=== PATIENT | female | born 1975 | race Caucasian/White ===

== ENCOUNTER → 2017-04-08 | Outpatient (REF) | payer OTHER | LOC: M SFHCWAGY 12:00 | PROVIDERS: ATTEND Nurse Practitioner Family | DX: Z12.4 Encounter for screening for malignant neoplasm of cervix (principal) ==

== ENCOUNTER → 2017-05-23 | Outpatient (REF) | payer OTHER ==
[~2017-05-23] MED LIST: CIPR-249 PO; CYCL10TA PO; FLOM5CAP PO; LEVA1TAB2 PO; LORA0.5T11 PO; OXYC1TAB23 PO; PERC5TAB12 PO; PREV1CAP PO; ZOFR4TAB3 PO
== END ==
LOC: M SFHCWAGY 15:23
PROVIDERS: ATTEND Nurse Practitioner Women's Health
DX: N87.0 Mild cervical dysplasia (principal)

== ENCOUNTER → 2017-06-20 | Outpatient (REF) | payer OTHER | LOC: M SFHCWAGY 09:28 | PROVIDERS: ATTEND Nurse Practitioner Women's Health | DX: N92.1 Excessive and frequent menstruation with irregular cycle (principal) ==

== ENCOUNTER → 2017-06-20 | Outpatient (CLI) | payer OTHER ==
--- NOTE | 2017-06-20 09:45 | REP ---
PELVIC ULTRASOUND: Real-time sonographic evaluation of the pelvis performed utilizing transabdominal and endovaginal technique. Bladder measures 10.1 x 11.4 x 6.3 cm. Uterus measures 8.8 x 4.0 x 5.5 cm. Endometrium is prominent in thickness and diffusely heterogeneous in echotexture. Maximum AP dimension is 15 mm in the fundus. There is no endometrial fluid collection. Small nabothian cysts are seen in the region of the cervix. The ovaries are normal in size and echotexture, right ovary measuring 2.9 x 1.5 x 2.9 cm and left ovary 3.5 x 1.8 x 2.4 cm. IMPRESSION: Prominent endometrial thickness with diffuse heterogeneous echotexture of the endometrium.
== END ==
LOC: M WHC 08:02
PROVIDERS: ATTEND Nurse Practitioner Women's Health
DX: N92.1 Excessive and frequent menstruation with irregular cycle (principal)

== ENCOUNTER → 2018-08-03 | Outpatient (REF) | payer OTHER | LOC: M SFHCWAGY 15:20 | DX: Z12.4 Encounter for screening for malignant neoplasm of cervix (principal) ==

== ENCOUNTER → 2018-08-03 | Outpatient (CLI) | payer OTHER | LOC: M WHC 14:54 | DX: Z12.31 Encounter for screening mammogram for malignant neoplasm of breast (principal); N60.31 Fibrosclerosis of right breast; N60.32 Fibrosclerosis of left breast | CPT/HCPCS: 77067 ==

== ENCOUNTER → 2018-08-28 | Outpatient (REF) | payer OTHER | LOC: M SFHCWAGY 15:30 | DX: R87.612 Low grade squamous intraepithelial lesion on cytologic smear of cervix (LGSIL) (principal) ==

== ENCOUNTER → 2020-01-07 | Outpatient (CLI) | payer BC ==
[~2020-01-07] MED LIST changes: +FLOM0.4C39 PO; -FLOM5CAP PO; -LORA0.5T11 PO; +LORA0.5T5 PO; +ZOFR4TAB14 PO; -ZOFR4TAB3 PO
--- NOTE | 2020-01-07 09:52 | REP ---
BILATERAL SCREENING DIGITAL MAMMOGRAM WITH 3D TOMOSYNTHESIS: There are no palpable abnormalities or other breast complaints. The patient does not indicate when she had her last clinical breast examination. The [facility] Lifetime Breast Cancer Risk Score is: 9.3% . Comparison is 05/27/2017. The breasts are heterogeneously dense, which could obscure small masses. There is no dominant mass, micro calcific cluster or architectural distortion that would indicate malignancy. There are no additional findings on 3D tomosynthesiss. There is no change from the prior study. Impression: BIRADS/ACR category 1 mammogram. Negative. Recommendation: Routine annual screening mammography. Because of the increased breast density, annual adjunctive breast MRI in addition to screening mammography is recommended. These can be performed at alternating six month intervals. This mammogram was interpreted with the aid of a FDA approved computer-aided detection system. A. Negative mammogram reports should not delay biopsy if a dominant or clinically suspicious mass is present. B. Not all breast cancers are identified by mammography or tomosynthesis. C. Adenosis and dense breasts may obscure an underlying neoplasm. Patient letter M1 dense breasts. Electronically Signed by Bandar Garcia MD 01/07/2020 09:44 A
== END ==
LOC: M WHC 08:40
PROVIDERS: ATTEND Nurse Practitioner Family
DX: Z12.31 Encounter for screening mammogram for malignant neoplasm of breast (principal); Z12.4 Encounter for screening for malignant neoplasm of cervix
CPT/HCPCS: 77063; 77067; 87624; G0123

== ENCOUNTER → 2020-05-15 | Outpatient (CLI) | payer BC ==
[~2020-05-15] MED LIST changes: +CYCL-707 PO; -CYCL10TA PO
--- NOTE | 2020-05-15 14:22 | REP ---
Clinical: Dysphasia. Technique: Real time garcia scale and color evaluation using linear high frequency and curved array transducers. Findings: Thyroid gland is relatively normal in contour, size, and parenchymal echo texture. Right lobe measures 4.6 x 2.1 x 1.6 cm and includes hyperechoic 7.5 x 7.9 x 13.5 mm mid pole nodule. Left lobe measures 4.5 x 1.9 x 1.3 cm without nodule. Isthmus measures 3.3 mm in width. Impression: Solitary indeterminate right thyroid nodule. Electronically Signed by Travis Onofre MD 05/15/2020 02:12 P
== END ==
LOC: M RAD 13:24
PROVIDERS: ATTEND Nurse Practitioner Family
DX: R30.0 Dysuria (principal)

== ENCOUNTER 2020-07-24 14:31 | Inpatient (IN) | payer BC ==
[~2020-07-24] VITALS: Ht 170.2 cm; Wt 63.6 kg
[2020-07-24] MEDS ORDERED: SULF1TAB93 PO (14:48)
[2020-07-24] MEDS ORDERED: FLUC150T PO (14:48)
[2020-07-24] MEDS ORDERED: FAMO1TAB25 PO (15:41)
[2020-07-24 15:42] LABS: BASO # 0.1 10^3/uL (0.0-0.2); BASO % 0.8 % (0.0-1.0); EOS # 0.1 10^3/uL (0.0-0.5); EOS % 0.8 % (0.0-3.0); HEMOGLOBIN 13.1 g/dl (12.0-15.5); LYMPH # 2.2 10^3/uL (1.5-5.0); LYMPH % 25.1 % (24.0-44.0); MEAN CORPUSCULAR HEMOGLOBIN 30.8 pg (27.0-33.0); MEAN CORPUSCULAR HGB CONC 33.6 g/dl (32.0-36.5); MEAN CORPUSCULAR VOLUME 91.5 fl (80.0-96.0); MONO # 0.9 10^3/uL (0.0-0.8); NEUTROPHILS # 5.4 10^3/uL (1.5-8.5); PLATELET COUNT, AUTOMATED 292 10^3/uL (150-450); RED BLOOD COUNT 4.26 10^6/uL (4.00-5.40); WHITE BLOOD COUNT 8.6 10^3/uL (4.0-10.0)
[2020-07-24 16:17] LABS: ALBUMIN 3.7 GM/DL (3.2-5.2); ALT/SGPT 19 U/L (12-78); BILIRUBIN,DIRECT 0.1 MG/DL (0.0-0.2); BILIRUBIN,TOTAL 0.5 MG/DL (0.2-1.0); BLOOD UREA NITROGEN 5 MG/DL (7-18); CALCIUM LEVEL 8.9 MG/DL (8.5-10.1); CARBON DIOXIDE LEVEL 29 MEQ/L (21-32); CHLORIDE LEVEL 106 MEQ/L (98-107); CREATININE FOR GFR 0.71 MG/DL (0.55-1.30); GLOMERULAR FILTRATION RATE > 60.0 (>58); GLUCOSE, FASTING 86 MG/DL (70-100); LIPASE 67 U/L (73-393); SODIUM LEVEL 139 MEQ/L (136-145); TOTAL PROTEIN 6.6 GM/DL (6.4-8.2)
[2020-07-24 16:18] LABS: HCG, SERUM QUALITATIVE NEGATIVE (NEGATIVE)
[2020-07-24] MEDS ORDERED: PANTOPRAZOLE 40MG VIAL (C9113 PER 1) IV ONE (17:15)
[2020-07-24] MEDS: PANTOPRAZOLE SODIUM 40 MG in D5W 50 ML IV SCH ×2 (17:15→22:20)
[2020-07-24] MEDS ORDERED: CYAN2500 SL (17:39)
[2020-07-24] MEDS ORDERED: ATIV1TAB10 PO (17:39)
[2020-07-24] MEDS ORDERED: FLINCHW5 PO (17:39)
[2020-07-24] MEDS ORDERED: MORPHINE 4 MG/ML 1ML VIAL/SYRINGE (J2270) IV PRN (18:15)
[2020-07-24] MEDS ORDERED: GI COCKTAIL 50ML BTL(HYOSCYAMINE/MAALOX/LIDOCAINE VISCOUS)(1:3:1) PO PRN (18:15)
[2020-07-24] MEDS: SUCRALFATE SUSP 1GM/10ML UD PO SCH (22:20)
[2020-07-24 22:37] VITALS: BP 117/69
[2020-07-24] MEDS ORDERED: BACTRIM 160MG/800MG DS TAB PO ONE (23:15)
[2020-07-25 00:26] LABS: HEMATOCRIT 38.5 % (36.0-47.0); HEMOGLOBIN 12.8 g/dl (12.0-15.5)
[2020-07-25] MEDS: PANTOPRAZOLE SODIUM 40 MG in D5W 50 ML IV SCH ×2 (03:14→08:47)
[2020-07-25] MEDS ORDERED: D5W/0.45% SODIUM CHLORIDE 1,000 ML IV SCH (04:00)
[2020-07-25 06:00] VITALS: BP 118/69
[2020-07-25 06:05] LABS: HEMATOCRIT 38.2 % (36.0-47.0); HEMOGLOBIN 12.5 g/dl (12.0-15.5); MEAN CORPUSCULAR HEMOGLOBIN 29.6 pg (27.0-33.0); MEAN CORPUSCULAR HGB CONC 32.7 g/dl (32.0-36.5); MEAN CORPUSCULAR VOLUME 90.5 fl (80.0-96.0); PLATELET COUNT, AUTOMATED 273 10^3/uL (150-450); RED BLOOD COUNT 4.22 10^6/uL (4.00-5.40); WHITE BLOOD COUNT 6.5 10^3/uL (4.0-10.0)
[2020-07-25 06:14] LABS: INR 1.08; PARTIAL THROMBOPLASTIN TIME 27.4 SECONDS (25.0-38.4); PROTHROMBIN TIME 14.3 SECONDS (11.8-14.0)
[2020-07-25 06:25] LABS: BLOOD UREA NITROGEN 4 MG/DL (7-18); CALCIUM LEVEL 8.3 MG/DL (8.5-10.1); CARBON DIOXIDE LEVEL 27 MEQ/L (21-32); CHLORIDE LEVEL 108 MEQ/L (98-107); CREATININE FOR GFR 0.67 MG/DL (0.55-1.30); GLOMERULAR FILTRATION RATE > 60.0 (>58); GLUCOSE, FASTING 93 MG/DL (70-100); SODIUM LEVEL 139 MEQ/L (136-145)
--- NOTE | 2020-07-25 06:52 | HPE ---
DATE OF ADMISSION: 07/24/2020 CHIEF COMPLAINT: Black stools. HISTORY OF PRESENT ILLNESS: A 45-year-old female with a history of gastric bypass surgery, gastric ulcer, duodenal ulcers, presents to the emergency room with 1-week history of epigastric abdominal pain, feeling like a hot poker, lasting for a few hours, waking her up from sleep, unalleviated by Tylenol half and half, Tums, and Prevacid at home. Patient noted black stools this morning and presented to the emergency room (ER) for further evaluation. Denies any lightheadedness, dizziness, shortness of breath, dyspnea on exertion. No falls at home. Epigastric pain is better when she is lying down, worse when she moves around and stands up. She had prior duodenal ulcer in the past when she had a barium swallow done. Esophagogastroduodenoscopy (EGD) at that time also showed an old gastric ulcer. She presents for evaluation. Patient was not found to be orthostatic. Hemoglobin was stable at 13 and hematocrit of 39. No bright red blood is seen. Denied any hematemesis, coffee-ground emesis. Patient otherwise denies any fever, chills, nausea, vomiting, constipation, or diarrhea. All other systems are negative. MEDICAL HISTORY: 1. Urinary tract infection. 2. Morbid obesity. 3. Gastric bypass surgery. 4. Duodenal ulcer. 5. Gastric ulcer. PAST SURGICAL HISTORY: 1. Gastric bypass. 2. EGD. 3. Cholecystectomy. FAMILY HISTORY: Father, age 74, Lewy body dementia, hypertension, coronary artery disease (CAD), coronary artery bypass graft (CABG), diabetes, hypercholesterolemia, basal cell cancer (CA). Mother with diabetes, hypertension, hypercholesterolemia, and CAD. SOCIAL HISTORY: Smokes a half a pack a day. Has been increasingly drinking the past few days with increased drink twice a week. No recreational drug use. Patient is a registered nurse. REVIEW OF SYSTEMS: Per history of present illness (HPI). A 12-point system otherwise negative. HOME MEDICATIONS: - Tums as needed - Tylenol as needed - famotidine 10 every night - fluconazole 150 as needed - Ativan 0.5 daily as needed for anxiety - Bactrim one tablet twice a day - vitamin B12 at 2500 mcg sublingually daily - Prevacid 30 mg twice a day - Flintstones vitamins two tablets daily ALLERGIES: CEPHALEXIN, DIAZEPAM, and GABAPENTIN. PHYSICAL EXAMINATION: Temperature 98.9, pulse 60, respiratory rate 18, blood pressure 117/68, 100% on room air. GENERAL: Patient is awake, alert, oriented to person, place, and time, answering questions appropriately. Anicteric sclerae. No jaundice. No pallor. No icterus. Speaks in full sentences. No use of respiratory accessory muscles. LUNGS: Clear to auscultation. No wheezing, rales, or rhonchi. HEART: S1, S2, sinus rhythm. ABDOMEN: Soft, tender in epigastric region. No rebound or guarding. Positive bowel sounds time four quadrants. EXTREMITIES: No cyanosis, clubbing, or pitting edema. LABORATORY DATA: White count 8.6, hemoglobin 13, hematocrit 39, platelet count 292. Sodium 139, potassium 4, chloride 106, bicarbonate 29, BUN 5, creatinine 0.71, glucose 86, calcium 8.9. Total bilirubin 0.5, direct bilirubin 0.1, AST 12, ALT 19, alkaline phosphatase 60, total protein 6.6, albumin 3.6. Lipase 67. ASSESSMENT AND PLAN: This is a 45-year-old female with a history of morbid obesity, status post gastric bypass surgery, urinary tract infection (UTI), duodenal ulcer, gastric ulcer, presents to the emergency room with 1-week history of epigastric abdominal pain, unalleviated by Tylenol half and half, Prevacid, Tums, with complaints of feeling a hot poker. Patient is admitted for acute upper gastrointestinal (GI) bleed, currently with black melanotic stools. IMPRESSION: 1. Acute upper GI bleed. 2. History of gastric bypass surgery with history of duodenal ulcers and gastric ulcers. PLAN: Patient will be on fld this evening for dinner. GI, Dr. Bermudez, has been consulted. Recommended Protonix drip, nothing by mouth after midnight, and EGD in the morning. Patient is clinically stable. Does not require any red blood cell (RBC) transfusion at this time. Will cycle hemoglobin and hematocrit every 6 hours, as-needed pain medications, and Protonix drip. MTDD
[2020-07-25] MEDS: SUCRALFATE SUSP 1GM/10ML UD PO SCH ×2 (08:47→11:57)
[2020-07-25] MEDS ORDERED: propofoL 200 MG/20 ML VIAL As Ordered ONE (10:49)
[2020-07-25] MEDS ORDERED: LIDOCAINE 2% 100MG/5ML SDV (FOR ANES.) As Ordered ONE (10:49)
[2020-07-25] MEDS ORDERED: ePHEDrine SULFATE 25 MG/5 ML(5MG/ML) SYRINGE As Ordered ONE (10:50)
--- NOTE | 2020-07-25 11:20 | ROOR ---
Patient Name: Pat Pascual Procedure Date: 07/25/2020 10:45 AM Date of : 1975 Age: 45 Room: [facility] Gender: Female Note Status: Finalized Procedure: Upper GI endoscopy Indications: Epigastric abdominal pain, Dyspepsia Providers: Vick Bermudez MD Referring MD: 2. Inpatient 2. Inpatient, YARELY Wayne Requesting Provider: Medicines: Monitored Anesthesia Care Complications: No immediate complications. Procedure: Pre-Anesthesia Assessment: - Prior to the procedure, a History and Physical was performed, and patient medications and allergies were reviewed. The patient is competent. The risks and benefits of the procedure and the sedation options and risks were discussed with the patient. All questions were answered and informed consent was obtained. Patient identification and proposed procedure were verified by the physician, the nurse and the anesthesiologist in the procedure room. Mental Status Examination: alert and oriented. Airway Examination: normal oropharyngeal airway and neck mobility. Respiratory Examination: clear to auscultation. CV Examination: normal. Prophylactic Antibiotics: The patient does not require prophylactic antibiotics. Prior Anticoagulants: The patient has taken no previous anticoagulant or antiplatelet agents. ASA Grade Assessment: II - A patient with mild systemic disease. After reviewing the risks and benefits, the patient was deemed in satisfactory condition to undergo the procedure. The anesthesia plan was to use monitored anesthesia care (MAC). Immediately prior to administration of medications, the patient was re-assessed for adequacy to receive sedatives. The heart rate, respiratory rate, oxygen saturations, blood pressure, adequacy of pulmonary ventilation, and response to care were monitored throughout the procedure. The physical status of the patient was re-assessed after the procedure. The Endoscope was introduced through the mouth, and advanced to the afferent and efferent jejunal loops. The upper GI endoscopy was accomplished without difficulty. The patient tolerated the procedure well. Findings: The examined esophagus was normal. The Z-line was regular and was found 38 cm from the incisors. Evidence of a Miguel-en-Y gastrojejunostomy was found. The gastrojejunal anastomosis was characterized by healthy appearing mucosa, erosion and an intact staple line. This was traversed. The jejunojejunal anastomosis was characterized by healthy appearing mucosa. The axeeafwp-[id number] limb was not examined as it could not be found. Two biopsies were obtained in the gastric body and at the anastomosis with cold forceps for histology and Helicobacter pylori testing. Verification of patient identification for the specimen was done by the physician and nurse using the patient's name, date and medical record number. Estimated blood loss was minimal. The examined jejunum was normal. Biopsies for histology were taken with a cold forceps for evaluation of celiac disease. Impression: - Normal esophagus. - Z-line regular, 38 cm from the incisors. - Miguel-en-Y gastrojejunostomy with gastrojejunal anastomosis characterized by healthy appearing mucosa, erosion and an intact staple line. - Normal examined jejunum. Biopsied. - Two biopsies were obtained in the gastric body and at the anastomosis. Recommendation: - Patient has a contact number available for emergencies. The signs and symptoms of potential delayed complications were discussed with the patient. Return to normal activities tomorrow. Written discharge instructions were provided to the patient. - High fiber diet. - Continue present medications. - Await pathology results. - Use Prevacid (lansoprazole) 30 mg PO BID for 6 weeks. - Return to GI clinic in [facility] (address [address], [facility] [address], [place] [address]) in 4 -- 6 weeks. Please call GI clinic @ [phone] for apppointment date and time. - Telephone GI clinic for pathology results in 2 weeks. - Return to primary care physician. Vick Bermudez MD Vick Bermudez MD 07/25/2020 11:20:07 AM Electronically signed by Vick Bermudez MD Number of Addenda: 0 Note Initiated On: 07/25/2020 10:45 AM Estimated Blood Loss: Estimated blood loss was minimal.
[2020-07-25 11:30] VITALS: BP 123/86
[2020-07-25] MEDS ORDERED: BACTRIM 160MG/800MG DS TAB PO ONE (12:00)
[2020-07-26] MEDS ORDERED: INFLUENZA QUADRIVALENT PF VACCINE 0.5ML SYRINGE IM ONE (09:00)
--- NOTE | 2020-08-12 11:52 | DSES ---
DATE OF ADMISSION: 07/24/2020 DATE OF DISCHARGE: 07/25/2020 [employer]LECT[employer]MENT ASSEMBLER: Dr. Bermudez PRIMARY DISCHARGE DIAGNOSES: 1. Acute upper gastrointestinal bleed due to duodenal erosion. 2. History of gastric bypass surgery. 3. History of gastric and duodenal ulcers. 4. Urinary tract infection present on admission and being treated as outpatient. DISCHARGE MEDICATIONS: - B12 at 2500 mcg daily - famotidine 10 every night - fluconazole 150 as directed - Prevacid 30 twice a day - Ativan 0.5 as needed - Flintstones vitamins two chewable daily - Bactrim one tablet twice a day HOSPITAL COURSE: This is a 45-year-old female admitted on 07/24/2020 with complaint of black stools at home and 1-week history of epigastric abdominal pain feeling like a hot poker, lasting for a few hours, unalleviated by Tylenol, Tums, Prevacid, and half and half. Patient was found to have normal vital signs and normal hemoglobin and hematocrit. She was kept on nothing by mouth, given Protonix drip, intravenous (IV) fluids, and was scoped by Dr. Bermudez on 07/25/2020 and was found to have an erosion at the Miguel-en-Y gastric jejunostomy anastomotic area. Patient was continued on Prevacid twice a day. She is to followup with either Dr. Garcia or Dr. Bermudez as outpatient. Hemoglobin and hematocrit remain stable. Blood pressure was 123. Patient did not require any blood transfusion and no recurrent episodes of melena or black, tarry stools. PHYSICAL EXAMINATION ON DISCHARGE: Temperature 98.2, pulse 91, respiratory rate 18, blood pressure 117/71, 98% on room air. GENERAL: Awake, alert, oriented times three, answering questions appropriately. Anicteric. No jaundice. Pupils round and reactive. Extraocular muscles are intact. Moist mucous membranes. No jugular venous distention (JVD), thyromegaly, or cervical lymphadenopathy. LUNGS: Clear to auscultation. No wheezing, rales, or rhonchi. HEART: S1, S2, sinus rhythm. ABDOMEN: Soft, slightly tender in epigastric region. No rebound or guarding. Positive bowel sounds times four quadrants. EXTREMITIES: No cyanosis, clubbing, or any pitting edema. LABORATORY DATA ON DISCHARGE: White count 6.5, hemoglobin 12.5, hematocrit 38, platelet count 273. Sodium 139, potassium 4, chloride 108, bicarbonate 27, BUN 4, creatinine 0.67, glucose 93. IMAGING STUDY: None. EGD report: Normal esophagus. Miguel-en-Y gastric jejunostomy with gastrojejunal anastomosis characterized by healthy appearing mucosa. Erosion and an intact staple line. Normal examined jejunal biopsy. Two biopsies were obtained in the gastric body and at the anastomosis. Patient was given contact information for any emergencies. TIME SPENT ON DISCHARGE: 30 minutes. MTDD
== END 2020-07-25 13:44 | disposition home or self-care (01) | DRG 253 ==
LOC: M ED 14:31 → M ED INP 17:18 → ENRESERV 21:17 → M MSPAV 22:05
PROVIDERS: ADMIT General Practice; ATTEND General Practice
PROC: 0DB68ZX Excision of Stomach, Via Natural or Artificial Opening Endoscopic, Diagnostic (ICD-10-PCS; principal; 2020-07-25 16:30)
DX: K92.2 Gastrointestinal hemorrhage, unspecified (principal); Z88.8 Allergy status to other drugs, medicaments and biological substances; Z98.84 Bariatric surgery status; Z79.899 Other long term (current) drug therapy; Z68.22 Body mass index [BMI] 22.0-22.9, adult

== ENCOUNTER 2021-01-23 18:56 | Emergency (ER) | payer BC ==
[~2021-01-23 18:56] MED LIST changes: +ATIV1TAB10 PO; +CYAN2500 SL; +FAMO1TAB25 PO; +FLINCHW5 PO; +FLUC150T PO; +SULF1TAB93 PO
[2021-01-23 19:55] LABS: HEMOGLOBIN 13.1 g/dl (12.0-15.5); MEAN CORPUSCULAR HEMOGLOBIN 27.5 pg (27.0-33.0); PLATELET COUNT, AUTOMATED 368 10^3/uL (150-450); RED BLOOD COUNT 4.77 10^6/uL (4.00-5.40); WHITE BLOOD COUNT 9.3 10^3/uL (4.0-10.0)
[2021-01-23 20:17] LABS: AMPHETAMINES LEVEL URINE NEGATIVE (NEGATIVE); BARBITURATES URINE NEGATIVE (NEGATIVE); BENZODIAZEPINES URINE NEGATIVE (NEGATIVE); CANNABINOIDS URINE NEGATIVE (NEGATIVE); COCAINE METABOLITE URINE NEGATIVE (NEGATIVE); METHADONE URINE NEGATIVE (NEGATIVE); OPIATES URINE NEGATIVE (NEGATIVE); PHENCYCLIDINE URINE NEGATIVE (NEGATIVE)
[2021-01-23 20:24] LABS: HCG, SERUM QUALITATIVE NEGATIVE (NEGATIVE)
[2021-01-23 20:26] LABS: ACETAMINOPHEN LEVEL < 2.0 UG/ML (10.0-30.0); ALBUMIN 4.1 GM/DL (3.2-5.2); ALT/SGPT 93 U/L (12-78); BILIRUBIN,DIRECT 0.1 MG/DL (0.0-0.2); BILIRUBIN,TOTAL 0.2 MG/DL (0.2-1.0); BLOOD UREA NITROGEN 4 MG/DL (7-18); CALCIUM LEVEL 8.9 MG/DL (8.5-10.1); CARBON DIOXIDE LEVEL 27 MEQ/L (21-32); CHLORIDE LEVEL 110 MEQ/L (98-107); CREATININE FOR GFR 0.74 MG/DL (0.55-1.30); ETHYL ALCOHOL (ETHANOL) 0.085 % (0.000-0.010); GLOMERULAR FILTRATION RATE > 60.0 (>58); GLUCOSE, FASTING 159 MG/DL (70-100); POTASSIUM SERUM 3.4 MEQ/L (3.5-5.1); SALICYLATE LEVEL 4.1 MG/DL (5.0-30.0); SODIUM LEVEL 143 MEQ/L (136-145); TOTAL PROTEIN 6.9 GM/DL (6.4-8.2)
[2021-01-23 21:59] VITALS: BP 124/59
== END 2021-01-23 21:51 | disposition home or self-care (01) ==
LOC: M ED 18:56
DX: F43.0 Acute stress reaction (principal); F17.200 Nicotine dependence, unspecified, uncomplicated; Z88.8 Allergy status to other drugs, medicaments and biological substances; Z79.899 Other long term (current) drug therapy

== ENCOUNTER → 2021-03-18 | Outpatient (CLI) | payer BC ==
--- NOTE | 2021-03-18 09:57 | REP ---
INDICATION: SPONDYLOLISTHESIS, SITE UNSPECIFIED. COMPARISON: Comparison CT study of the neck is from June 18, 2011. This was a soft tissue neck protocol CT.. TECHNIQUE: Sagittal and axial T1 and T2-weighted scans are acquired in the usual fashion with and without fat saturation. Sequences include spin echo, turbo spin-echo, and STIR imaging sequences. FINDINGS: There is straightening of the normal cervical lordosis. Alignment is otherwise normal. Cervical cord is normal in course, caliber, and signal intensity on T1 and T2 weighted scans throughout the cervical spine and visualized upper thoracic spine. Craniocervical junction is unremarkable. There is some sclerosis and degenerative change at the C1-2 level adjacent to the dens unchanged. Axial and sagittal images at C2-3 show no evidence of disc protrusion. At C3-4, there is right posterior disc bulging without thecal sac compression. No neural foraminal narrowing is seen. At C4-5, there is minimal diffuse disc bulging. No spinal stenosis or foraminal narrowing is seen. At the C5-6 level, there is central disc bulging indenting the ventral margin of the thecal sac. There is uncovertebral spurring producing mild neural foraminal narrowing on the right. At C6-7 level, there is diffuse disc bulging and posterior osteophytic ridging. Bilateral uncovertebral spurring is seen right greater than left. The C7-T1 and the visualized upper thoracic levels are unremarkable. IMPRESSION: Degenerative spondylosis changes with mild uncovertebral spurring bilaterally at C6-7 and on the right at C5-6. <Electronically signed by Azeem Mijares > 03/18/21 [id number]
== END ==
LOC: M PLARAD 08:37
PROVIDERS: ATTEND Physician Assistant Medical
DX: M43.12 Spondylolisthesis, cervical region (principal); M25.78 Osteophyte, vertebrae

== ENCOUNTER → 2021-12-04 | Outpatient (CLI) | payer BC ==
[~2021-12-04] MED LIST changes: +BACTDSTA PO; +FAMO10TA50 PO; -FAMO1TAB25 PO; -SULF1TAB93 PO
[2021-12-04 17:28] LABS: HEMATOCRIT 28.8 % (36.0-47.0); HEMOGLOBIN 8.5 g/dl (12.0-15.5); MEAN CORPUSCULAR HEMOGLOBIN 21.3 pg (27.0-33.0); MEAN CORPUSCULAR HGB CONC 29.5 g/dl (32.0-36.5); PLATELET COUNT, AUTOMATED 413 10^3/uL (150-450); WHITE BLOOD COUNT 14.2 10^3/uL (4.0-10.0)
[2021-12-07 19:10] LABS: HSV IgM TYPES 1&2 <0.91 Ratio (0.00-0.90)
== END ==
LOC: M PLALAB 14:38
PROVIDERS: ATTEND Advanced Practice Midwife
DX: N94.9 Unspecified condition associated with female genital organs and menstrual cycle (principal); Z11.3 Encounter for screening for infections with a predominantly sexual mode of transmission

== ENCOUNTER 2021-12-14 07:55 | Outpatient (CLI) | payer BC ==
[~2021-12-14] VITALS: Ht 167.6 cm; Wt 66.7 kg
[~2021-12-14 07:55] MED LIST changes: -FLUC150T PO; +FLUC150T9 PO
[2021-12-14 12:50] VITALS: BP 120/66
== END 2021-12-14 13:17 | disposition home or self-care (01) ==
LOC: M INFU 07:55
PROVIDERS: ATTEND Advanced Practice Midwife
DX: D50.8 Other iron deficiency anemias (principal); K95.89 Other complications of other bariatric procedure
CPT/HCPCS: 96365; 96366; J1756

== ENCOUNTER → 2022-01-29 | Outpatient (CLI) | payer BC | LOC: M RAD 14:33 | PROVIDERS: ATTEND Otolaryngology | DX: E04.1 Nontoxic single thyroid nodule (principal) ==

== ENCOUNTER → 2022-07-01 | Outpatient (CLI) | payer BC | LOC: M WHC 15:36 | PROVIDERS: ATTEND Advanced Practice Midwife | DX: Z12.31 Encounter for screening mammogram for malignant neoplasm of breast (principal); N63.41 Unspecified lump in right breast, subareolar; Z98.82 Breast implant status ==

== ENCOUNTER → 2022-07-02 | Outpatient (REF) | payer BC | LOC: M SFHCWAGY 13:01 | PROVIDERS: ATTEND Advanced Practice Midwife | DX: Z12.4 Encounter for screening for malignant neoplasm of cervix (principal); Z87.410 Personal history of cervical dysplasia; R87.612 Low grade squamous intraepithelial lesion on cytologic smear of cervix (LGSIL) ==

== ENCOUNTER → 2022-07-20 | Outpatient (CLI) | payer BC | LOC: M WHC 08:51 | PROVIDERS: ATTEND Advanced Practice Midwife | DX: R92.8 Other abnormal and inconclusive findings on diagnostic imaging of breast (principal) ==

== ENCOUNTER → 2022-08-11 | Outpatient (REF) | payer BC | LOC: M SFHCWAGY 17:29 | PROVIDERS: ATTEND Obstetrics & Gynecology | DX: N87.1 Moderate cervical dysplasia (principal) ==

== ENCOUNTER → 2022-11-24 | Outpatient (REF) | payer BC | LOC: M SFHCWAGY 13:04 | PROVIDERS: ATTEND Advanced Practice Midwife | DX: N90.7 Vulvar cyst (principal) ==

== ENCOUNTER 2023-09-26 07:42 | Emergency (ER) | payer BC ==
[~2023-09-26] VITALS: Ht 170.2 cm; Wt 65.2 kg
[2023-09-26] MEDS ORDERED: CYCL-707 (07:55)
[2023-09-26] MEDS ORDERED: HYDR-3713 (07:55)
[2023-09-26] MEDS ORDERED: LEVOTAB10 (07:55)
[2023-09-26 08:24] LABS: BASO # 0.1 10^3/uL (0.0-0.2); BASO % 1.5 % (0.0-1.0); EOS # 0.1 10^3/uL (0.0-0.5); EOS % 1.8 % (0.0-3.0); HEMOGLOBIN 9.2 g/dl (12.0-15.5); LYMPH # 1.4 10^3/uL (1.5-5.0); LYMPH % 22.8 % (24.0-44.0); MEAN CORPUSCULAR HEMOGLOBIN 22.8 pg (27.0-33.0); MEAN CORPUSCULAR HGB CONC 29.7 g/dl (32.0-36.5); MEAN CORPUSCULAR VOLUME 76.7 fl (80.0-96.0); MONO # 0.5 10^3/uL (0.0-0.8); MONO % 7.4 % (2.0-8.0); PLATELET COUNT, AUTOMATED 456 10^3/uL (150-450); RED BLOOD COUNT 4.04 10^6/uL (4.00-5.40); WHITE BLOOD COUNT 6.1 10^3/uL (4.0-10.0)
[2023-09-26 08:42] LABS: LIPASE 34 U/L (12-53)
[2023-09-26 08:43] LABS: HCG, SERUM QUALITATIVE NEGATIVE (NEGATIVE)
[2023-09-26 08:44] LABS: ALBUMIN 3.4 G/DL (3.2-5.2); ALKALINE PHOSPHATASE 40 U/L (46-116); ALT/SGPT 13 U/L (7.0-40); AST/SGOT 13 U/L (<34); BILIRUBIN,DIRECT < 0.1 MG/DL (<0.4); BILIRUBIN,TOTAL 0.2 MG/DL (0.3-1.2); BLOOD UREA NITROGEN 10 MG/DL (9-23); CALCIUM LEVEL 9.1 MG/DL (8.5-10.1); CARBON DIOXIDE LEVEL 29 MMOL/L (20-31); CHLORIDE LEVEL 107 MMOL/L (98-107); CREATININE FOR GFR 0.65 MG/DL (0.55-1.30); GLOMERULAR FILTRATION RATE > 60.0 (>58); GLUCOSE, FASTING 93 MG/DL (60-100); POTASSIUM SERUM 4.6 MMOL/L (3.5-5.1); SODIUM LEVEL 143 MMOL/L (136-145); TOTAL PROTEIN 6.3 G/DL (5.7-8.2)
[2023-09-26] MEDS ORDERED: DICYCLOMINE 10 MG CAP PO ONE (12:30)
[2023-09-26] MEDS ORDERED: NS 1,000 ML IV ONE (12:30)
[2023-09-26] MEDS ORDERED: ISOVUE-370 76% 100ML VIAL As Ordered ONE (12:34)
[2023-09-26] MEDS ORDERED: REGL10TA6 PO (13:59)
[2023-09-26] MEDS ORDERED: DICY-61 PO (13:59)
[2023-09-26] MEDS ORDERED: LACT20EL PO (13:59)
[2023-09-26] MEDS ORDERED: MAGNESIUM CITRATE 300ML BTL PO ONE (14:00)
[2023-09-26 14:13] VITALS: BP 143/68; TEMP 97.9; O2SAT 100
== END 2023-09-26 14:24 | disposition home or self-care (01) ==
LOC: M ED 07:42
DX: K59.00 Constipation, unspecified (principal); R14.0 Abdominal distension (gaseous); R51.9 Headache, unspecified; G47.33 Obstructive sleep apnea (adult) (pediatric); Z98.84 Bariatric surgery status; Z88.8 Allergy status to other drugs, medicaments and biological substances; Z79.899 Other long term (current) drug therapy
CPT/HCPCS: 36415; 74018; 74177; 80048; 80076; 83690; 84703; 85025; 99284; Q9967

== ENCOUNTER → 2023-10-27 | Outpatient (REF) ==
[~2023-10-27] MED LIST changes: +CYCL-707; +DICY-61 PO; +HYDR-3713; +LACT20EL PO; +LEVOTAB10; +REGL10TA6 PO
== END ==
LOC: M EMP 08:21
PROVIDERS: ATTEND Family Medicine
DX: Z11.52 Encounter for screening for COVID-19 (principal)

== ENCOUNTER 2023-12-02 09:18 | Outpatient (CLI) | payer BC ==
[~2023-12-02] VITALS: Ht 170.2 cm; Wt 63.6 kg
[2023-12-02 09:30] VITALS: BP 141/63; O2SAT 98
[2023-12-02] MEDS ORDERED: ONDANSETRON 4MG 2ML VIAL IV PRN (09:30)
[2023-12-02] MEDS ORDERED: FERRIC CARBOXYMALTOSE INJ 750 MG in NS 250 ML (>50kg) IV ONE ×3 (09:30)
[2023-12-02 10:57] VITALS: BP 120/78; O2SAT 100
== END 2023-12-02 11:00 | disposition home or self-care (01) ==
LOC: M INFU 09:18
PROVIDERS: ATTEND Advanced Practice Midwife
DX: D50.8 Other iron deficiency anemias (principal); N92.1 Excessive and frequent menstruation with irregular cycle; Z98.84 Bariatric surgery status; Z88.1 Allergy status to other antibiotic agents; Z88.8 Allergy status to other drugs, medicaments and biological substances
CPT/HCPCS: 96365; J1439

== ENCOUNTER 2023-12-09 09:45 | Outpatient (CLI) | payer BC ==
[2023-12-09 09:45] VITALS: BP 131/68; O2SAT 80
[2023-12-09] MEDS ORDERED: ONDANSETRON 4MG 2ML VIAL IV PRN (09:55)
[2023-12-09] MEDS: FERRIC CARBOXYMALTOSE INJ 750 MG in NS 250 ML (>50kg) IV ONE (10:08)
[2023-12-09 11:10] VITALS: BP 112/68; O2SAT 100
== END 2023-12-09 11:12 | disposition home or self-care (01) ==
LOC: M INFU 09:45
PROVIDERS: ATTEND Advanced Practice Midwife
DX: N92.1 Excessive and frequent menstruation with irregular cycle (principal); D50.8 Other iron deficiency anemias; Z98.84 Bariatric surgery status; Z88.1 Allergy status to other antibiotic agents; Z88.8 Allergy status to other drugs, medicaments and biological substances
CPT/HCPCS: 96365; J1439

== ENCOUNTER → 2023-12-22 | Outpatient (CLI) | payer BC | LOC: M WHC 11:04 | PROVIDERS: ATTEND Advanced Practice Midwife | DX: Z12.31 Encounter for screening mammogram for malignant neoplasm of breast (principal) ==

== ENCOUNTER → 2023-12-22 | Outpatient (REF) | payer BC | LOC: M PLALAB 12:20 | PROVIDERS: ATTEND Advanced Practice Midwife | DX: Z01.419 Encounter for gynecological examination (general) (routine) without abnormal findings (principal); Z12.4 Encounter for screening for malignant neoplasm of cervix ==

== ENCOUNTER → 2024-08-03 | Outpatient (REF) | LOC: M EMP 11:32 | PROVIDERS: ATTEND Family Medicine | DX: R09.89 Other specified symptoms and signs involving the circulatory and respiratory systems (principal) ==

== ENCOUNTER 2024-08-27 08:52 | Day surgery (SDC) | payer BC ==
[~2024-08-27] VITALS: Ht 177.8 cm; Wt 66.1 kg
[~2024-08-27 08:52] MED LIST changes: -CYCL-707; -HYDR-3713; +HYDR-3713 PO; +LANS30CA93 PO; +MM S100C PO; +NS 250 ML IV ONE
[2024-08-27] MEDS ORDERED: propofoL 200 MG/20 ML VIAL As Ordered ONE (10:31)
[2024-08-27 11:10] VITALS: TEMP 97.6
[2024-08-27 11:25] VITALS: BP 109/72; O2SAT 99
== END 2024-08-27 11:30 | disposition home or self-care (01) ==
LOC: M OPP 08:52
PROVIDERS: ATTEND Internal Medicine Gastroenterology
DX: Z12.11 Encounter for screening for malignant neoplasm of colon (principal); Z83.719 Family history of colon polyps, unspecified; K63.5 Polyp of colon; K57.30 Diverticulosis of large intestine without perforation or abscess without bleeding; K64.8 Other hemorrhoids; K21.9 Gastro-esophageal reflux disease without esophagitis; M19.90 Unspecified osteoarthritis, unspecified site; F41.9 Anxiety disorder, unspecified; F17.290 Nicotine dependence, other tobacco product, uncomplicated; Z88.1 Allergy status to other antibiotic agents; Z88.8 Allergy status to other drugs, medicaments and biological substances; Z79.899 Other long term (current) drug therapy; Z80.8 Family history of malignant neoplasm of other organs or systems

== ENCOUNTER → 2024-09-05 | Outpatient (REF) ==
[~2024-09-05] MED LIST changes: -NS 250 ML IV ONE
[2024-09-05 14:17] LABS: APPEARANCE, URINE CLEAR (CLEAR); BACTERIA, URINE AUTO NEGATIVE (NEGATIVE); BILIRUBIN, URINE AUTO NEGATIVE (NEGATIVE); BLOOD, URINE BLOOD NEGATIVE (NEGATIVE); COLOR, URINE YELLOW (YELLOW); GLUCOSE, URINE (UA) AUTO NEGATIVE (NEGATIVE); KETONE, URINE AUTO NEGATIVE (NEGATIVE); LEUKOCYTE ESTERASE, URINE AUTO NEGATIVE (NEGATIVE); MUCUS, URINE SMALL (NEGATIVE); NITRITE, URINE AUTO NEGATIVE (NEGATIVE); PROTEIN, URINE AUTO NEGATIVE (NEGATIVE); RBC, URINE AUTO 0 /HPF (0-3); SPECIFIC GRAVITY URINE AUTO 1.013 (1.002-1.035); SQUAMOUS EPITHELIAL CELL UR AU 0 /HPF (0-6); UROBILINOGEN, URINE AUTO 0.2 mg/dL (0.0-2.0); WBC, URINE AUTO 0 /HPF (0-3)
[2024-09-05 15:15] LABS: BASO % 0.4 % (0.0-1.0); EOS # 0.1 10^3/uL (0.0-0.5); EOS % 1.3 % (0.0-3.0); HEMATOCRIT 39.8 % (36.0-47.0); HEMOGLOBIN 13.5 g/dl (12.0-15.5); LYMPH # 2.2 10^3/uL (1.5-5.0); LYMPH % 23.2 % (24.0-44.0); MEAN CORPUSCULAR HGB CONC 33.9 g/dl (32.0-36.5); MEAN CORPUSCULAR VOLUME 91.5 fl (80.0-96.0); MONO # 0.8 10^3/uL (0.0-0.8); MONO % 7.9 % (2.0-8.0); NEUTROPHILS # 6.4 10^3/uL (1.5-8.5); NEUTROPHILS % 66.9 % (36.0-66.0); PLATELET COUNT, AUTOMATED 301 10^3/uL (150-450); RED BLOOD COUNT 4.35 10^6/uL (4.00-5.40); WHITE BLOOD COUNT 9.6 10^3/uL (4.0-10.0)
[2024-09-05 17:26] LABS: ALKALINE PHOSPHATASE 49 U/L (46-116); ALT/SGPT 16 U/L (7.0-40); AST/SGOT 8 U/L (<34); BILIRUBIN,TOTAL 0.3 MG/DL (0.3-1.2); BLOOD UREA NITROGEN 10 MG/DL (9-23); CALCIUM LEVEL 9.8 MG/DL (8.5-10.1); CARBON DIOXIDE LEVEL 30 MMOL/L (20-31); CHLORIDE LEVEL 105 MMOL/L (98-107); CREATININE FOR GFR 0.63 MG/DL (0.55-1.30); GLOMERULAR FILTRATION RATE > 60.0 (>58); GLUCOSE, FASTING 91 MG/DL (60-100); SODIUM LEVEL 139 MMOL/L (136-145); THYROID STIMULATING HORMONE 3.907 uIU/ML (0.55-4.78); TOTAL PROTEIN 6.4 G/DL (5.7-8.2)
== END ==
LOC: M LAB 13:01
PROVIDERS: ATTEND Family Medicine
DX: Z01.89 Encounter for other specified special examinations (principal)

== ENCOUNTER → 2024-10-31 | Outpatient (CLI) | payer BC ==
[2024-10-31 15:10] LABS: HEMATOCRIT 43.1 % (36.0-47.0); HEMOGLOBIN 14.6 g/dl (12.0-15.5); MEAN CORPUSCULAR HEMOGLOBIN 31.1 pg (27.0-33.0); MEAN CORPUSCULAR HGB CONC 33.9 g/dl (32.0-36.5); MEAN CORPUSCULAR VOLUME 91.9 fl (80.0-96.0); PLATELET COUNT, AUTOMATED 280 10^3/uL (150-450); RED BLOOD COUNT 4.69 10^6/uL (4.00-5.40); WHITE BLOOD COUNT 5.4 10^3/uL (4.0-10.0)
== END ==
LOC: M PLALAB 12:21
PROVIDERS: ATTEND Obstetrics & Gynecology
DX: N93.9 Abnormal uterine and vaginal bleeding, unspecified (principal)

== ENCOUNTER → 2024-10-31 | Outpatient (CLI) | payer BC ==
[2024-10-31 15:34] LABS: PERCENT SATURATION 63.1 % (13.2-45.0)
[2024-10-31 15:37] LABS: FERRITIN 17.4 NG/ML (7.3-270.7)
== END ==
LOC: M PLALAB 12:18
PROVIDERS: ATTEND Internal Medicine Hematology
DX: E61.1 Iron deficiency (principal)

== ENCOUNTER → 2024-11-23 | Outpatient (CLI) | payer BC ==
[~2024-11-23] MED LIST changes: +CIDA500T2 PO; +COLA100C5 PO; +MULTTAB61 PO
== END ==
LOC: M WHC 12:06
PROVIDERS: ATTEND Obstetrics & Gynecology
DX: N93.9 Abnormal uterine and vaginal bleeding, unspecified (principal); D25.9 Leiomyoma of uterus, unspecified

== ENCOUNTER 2024-11-26 08:38 | Day surgery (SDC) | payer BC ==
[~2024-11-26] VITALS: Ht 170.2 cm; Wt 68.0 kg
[2024-11-26] MEDS ORDERED: LR 1,000 ML IV SCH (09:40)
[2024-11-26] MEDS: SCOPOLAMINE 1MG TRANSDERMAL PATCH TOP ONE (09:50)
[2024-11-26 09:57] LABS: HEMATOCRIT 43.5 % (36.0-47.0); HEMOGLOBIN 14.5 g/dl (12.0-15.5); MEAN CORPUSCULAR HGB CONC 33.3 g/dl (32.0-36.5); MEAN CORPUSCULAR VOLUME 90.1 fl (80.0-96.0); PLATELET COUNT, AUTOMATED 307 10^3/uL (150-450); RED BLOOD COUNT 4.83 10^6/uL (4.00-5.40); WHITE BLOOD COUNT 6.8 10^3/uL (4.0-10.0)
[2024-11-26] MEDS: ceFAZolin SOD 2 GM in IV 1 EA IV ONE (10:04)
[2024-11-26] MEDS ORDERED: ONDANSETRON 4MG 2ML VIAL As Ordered ONE (10:12)
[2024-11-26] MEDS ORDERED: dexmedeTOMIDine (4MCG/ML)200MCG/50ML BTL (PRECEDEX) As Ordered ONE (10:12)
[2024-11-26] MEDS ORDERED: HYDROmorphone HCL 2MG/ML 1ML VIAL As Ordered ONE (10:12)
[2024-11-26] MEDS ORDERED: METOCLOPRAMIDE INJ 10MG/2ML VIAL As Ordered ONE (10:12)
[2024-11-26] MEDS ORDERED: LIDOCAINE 2% 100MG/5ML SDV (FOR ANES.) As Ordered ONE (10:12)
[2024-11-26] MEDS ORDERED: diphenhydrAMINE 50MG/ML VIAL As Ordered ONE (10:12)
[2024-11-26] MEDS ORDERED: SUGAMMADEX SODIUM 500 MG/5 ML VIAL (BRIDION) As Ordered ONE (10:12)
[2024-11-26] MEDS ORDERED: propofoL 200 MG/20 ML VIAL As Ordered ONE (10:12)
[2024-11-26] MEDS ORDERED: ROCURONIUM BROMIDE 50MG/5ML VIAL As Ordered ONE (10:12)
[2024-11-26] MEDS ORDERED: KETOROLAC 60MG 2ML VIAL As Ordered ONE (10:12)
[2024-11-26] MEDS ORDERED: MIDAZOLAM INJ 2MG/2ML VIAL As Ordered ONE (10:12)
[2024-11-26] MEDS ORDERED: ACETAMINOPHEN 1000MG/100ML IV BAG As Ordered ONE (10:12)
[2024-11-26] MEDS ORDERED: PHENYLephrine 500MCG 5ML (100MCG/ML) SYRINGE As Ordered ONE (10:12)
[2024-11-26] MEDS ORDERED: fentaNYL 250 MCG/5 ML INJECTION As Ordered ONE (10:12)
[2024-11-26] MEDS: METHYLENE BLUE 0.5% (5MG/ML) 10 ML AMP (PROVAYBLUE) As Ordered ONE (10:51)
[2024-11-26] MEDS ORDERED: ONDANSETRON 4MG 2ML VIAL IV PRN ×2 (11:35→11:50)
[2024-11-26] MEDS ORDERED: PERCOCET 5MG/325MG TAB PO PRN ×2 (11:50)
[2024-11-26] MEDS ORDERED: MORPHINE 4 MG/ML 1ML VIAL IV PRN (11:50)
[2024-11-26] MEDS ORDERED: PROMETHAZINE 25MG/ML 1ML VIAL IV PRN (11:50)
[2024-11-26] MEDS ORDERED: IBUP80TA PO (11:57)
[2024-11-26] MEDS ORDERED: COLA100C5 PO (11:57)
[2024-11-26] MEDS ORDERED: PERCOCET PO ×2 (11:57→17:17)
[2024-11-26] MEDS: fentaNYL 100 MCG/2 ML INJECTION IV PRN (12:03)
[2024-11-26] MEDS: oxyCODONE 5MG TAB PO PRN (12:24)
[2024-11-26] MEDS: LR 1,000 ML IV SCH (12:44)
[2024-11-26 14:15] VITALS: BP 99/61; TEMP 97.3; O2SAT 96
[2024-11-26 15:15] VITALS: BP 105/63; TEMP 97.9; O2SAT 96
[2024-11-26] MEDS ORDERED: HOME MED LIST COMPLETE! XX SCH (15:55)
[2024-11-26 16:15] VITALS: BP 101/60; TEMP 98.4; O2SAT 96
[2024-11-26] MEDS: KETOROLAC 30 MG/ML 1ML VIAL IV SCH (17:05)
[2024-11-26] MEDS ORDERED: DOCUSATE SODIUM 100MG CAPSULE PO SCH (21:00)
[2024-11-27] MEDS ORDERED: IBUPROFEN 800 MG TAB PO SCH (19:30)
== END 2024-11-26 18:26 | disposition home or self-care (01) ==
LOC: M SDC 08:38 → M RR INP 08:39 → UNDOADMOB 08:39 → M RR INP 14:15 → M PED 14:15 → UNDODISOB 18:26 → M SDC 18:26
PROVIDERS: ATTEND Obstetrics & Gynecology
DX: N80.03 Adenomyosis of the uterus (principal); D25.9 Leiomyoma of uterus, unspecified; N93.9 Abnormal uterine and vaginal bleeding, unspecified; G43.909 Migraine, unspecified, not intractable, without status migrainosus; D64.9 Anemia, unspecified; K21.9 Gastro-esophageal reflux disease without esophagitis; M19.90 Unspecified osteoarthritis, unspecified site; R06.83 Snoring; M51.26 Other intervertebral disc displacement, lumbar region; Z98.84 Bariatric surgery status; Z87.891 Personal history of nicotine dependence; Z79.899 Other long term (current) drug therapy; F41.9 Anxiety disorder, unspecified; Z88.1 Allergy status to other antibiotic agents; Z88.8 Allergy status to other drugs, medicaments and biological substances
CPT/HCPCS: 36415; 58571; 81025; 85027; 86850; 86900; 86901; 88307; 96374; J0131; J0665; J0690; J1100; J1171; J1200; J1885; J2250; J2371; J2405; J2765; J3010; Q9968; S2900

== ENCOUNTER → 2025-01-02 | Outpatient (CLI) | payer BC ==
[~2025-01-02] MED LIST changes: +IBUP80TA PO; +PERCOCET PO
[2025-01-02 15:51] LABS: BASO # 0.1 10^3/uL (0.0-0.2); BASO % 0.9 % (0.0-1.0); EOS # 0.2 10^3/uL (0.0-0.5); EOS % 3.7 % (0.0-3.0); HEMATOCRIT 41.3 % (36.0-47.0); HEMOGLOBIN 13.9 g/dl (12.0-15.5); LYMPH # 2.1 10^3/uL (1.5-5.0); MEAN CORPUSCULAR HGB CONC 33.7 g/dl (32.0-36.5); MEAN CORPUSCULAR VOLUME 92.2 fl (80.0-96.0); MONO # 0.6 10^3/uL (0.0-0.8); MONO % 8.8 % (2.0-8.0); NEUTROPHILS # 3.4 10^3/uL (1.5-8.5); NEUTROPHILS % 53.3 % (36.0-66.0); PLATELET COUNT, AUTOMATED 288 10^3/uL (150-450); RED BLOOD COUNT 4.48 10^6/uL (4.00-5.40); WHITE BLOOD COUNT 6.5 10^3/uL (4.0-10.0)
[2025-01-02 16:32] LABS: FERRITIN 16.5 NG/ML (7.3-270.7)
[2025-01-02 16:33] LABS: THYROID STIMULATING HORMONE 2.234 uIU/ML (0.55-4.78)
[2025-01-02 16:34] LABS: FREE T4 1.28 NG/DL (0.89-1.76)
== END ==
LOC: M PLALAB 11:54
PROVIDERS: ATTEND Internal Medicine Hematology
DX: E61.1 Iron deficiency (principal); E53.8 Deficiency of other specified B group vitamins

== ENCOUNTER 2025-01-21 13:35 | Outpatient (CLI) | payer BC ==
[~2025-01-21] VITALS: Ht 170.2 cm; Wt 67.3 kg
[~2025-01-21 13:35] MED LIST changes: +ALBUTEROL SULFATE 2.5MG/0.5ML INH NEB SOLN INH PRN; +EPINEPHrine INJ 1 MG/ML 1ML AMP IM PRN; +diphenhydrAMINE 50MG/ML VIAL IV PRN; +methylPREDNISolone 125MG 2ML VIAL IV PRN
[2025-01-21 13:45] VITALS: BP 145/87; O2SAT 98
[2025-01-21] MEDS: IRON SUCROSE 300 MG in NS 250 ML OVER 90 MIN. IV ONE (13:47)
[2025-01-21 15:24] VITALS: BP 135/79; O2SAT 99
== END 2025-01-21 15:25 ==
LOC: M INFU 13:35
PROVIDERS: ATTEND Internal Medicine Hematology
DX: E61.1 Iron deficiency (principal); Z88.1 Allergy status to other antibiotic agents; Z88.8 Allergy status to other drugs, medicaments and biological substances
CPT/HCPCS: 96365; J1756

== ENCOUNTER 2025-02-14 15:20 | Outpatient (CLI) | payer BC, OTHER ==
[~2025-02-14] VITALS: Ht 170.2 cm; Wt 68.2 kg
[~2025-02-14 15:20] MED LIST changes: +ALBUTEROL SULFATE 2.5MG/0.5ML INH NEB SOLN INH PRN; +EPINEPHrine INJ 1 MG/ML 1ML AMP IM PRN; +diphenhydrAMINE 50MG/ML VIAL IV PRN; +methylPREDNISolone 125MG 2ML VIAL IV PRN
[2025-02-14] MEDS: IRON SUCROSE 300 MG in NS 250 ML OVER 90 MIN. IV ONE (15:37)
[2025-02-14 17:20] VITALS: BP 117/80; O2SAT 98
== END 2025-02-14 17:20 ==
LOC: M INFU 15:20
PROVIDERS: ATTEND Internal Medicine Hematology
DX: E61.1 Iron deficiency (principal); Z88.1 Allergy status to other antibiotic agents; Z88.8 Allergy status to other drugs, medicaments and biological substances
CPT/HCPCS: 96365; 96366; J1756

== ENCOUNTER → 2025-02-14 | Outpatient (CLI) | payer BC, OTHER ==
[~2025-02-14] MED LIST changes: -ALBUTEROL SULFATE 2.5MG/0.5ML INH NEB SOLN INH PRN; -EPINEPHrine INJ 1 MG/ML 1ML AMP IM PRN; -diphenhydrAMINE 50MG/ML VIAL IV PRN; -methylPREDNISolone 125MG 2ML VIAL IV PRN
== END ==
LOC: M WHC 07:28
PROVIDERS: ATTEND Advanced Practice Midwife
DX: N63.21 Unspecified lump in the left breast, upper outer quadrant (principal); R92.323 Mammographic fibroglandular density, bilateral breasts

== ENCOUNTER → 2025-02-19 | Outpatient (CLI) | payer OTHER ==
[~2025-02-19] MED LIST changes: -ALBUTEROL SULFATE 2.5MG/0.5ML INH NEB SOLN INH PRN; -EPINEPHrine INJ 1 MG/ML 1ML AMP IM PRN; -diphenhydrAMINE 50MG/ML VIAL IV PRN; -methylPREDNISolone 125MG 2ML VIAL IV PRN
== END ==
LOC: M RAD 16:46
PROVIDERS: ATTEND Obstetrics & Gynecology
DX: R10.9 Unspecified abdominal pain (principal)

== ENCOUNTER → 2025-07-04 | Outpatient (CLI) | payer BC ==
[~2025-07-04] MED LIST changes: -FLOM0.4C39 PO; +TAMS-18 PO
== END ==
LOC: M PLARAD 12:53
PROVIDERS: ATTEND Psychiatry & Neurology Neurology
DX: R20.2 Paresthesia of skin (principal); M47.816 Spondylosis without myelopathy or radiculopathy, lumbar region; M47.814 Spondylosis without myelopathy or radiculopathy, thoracic region; M50.23 Other cervical disc displacement, cervicothoracic region; M51.24 Other intervertebral disc displacement, thoracic region; E04.1 Nontoxic single thyroid nodule

== ENCOUNTER → 2025-08-23 | Outpatient (REF) ==
[2025-08-23 11:01] LABS: BASO # 0.1 10^3/uL (0.0-0.2); BASO % 0.8 % (0.0-1.0); EOS # 0.1 10^3/uL (0.0-0.5); EOS % 1.7 % (0.0-3.0); LYMPH # 1.9 10^3/uL (1.5-5.0); LYMPH % 29.2 % (24.0-44.0); MONO # 0.6 10^3/uL (0.0-0.8); MONO % 9.0 % (2.0-8.0); NEUTROPHILS # 3.7 10^3/uL (1.5-8.5); NEUTROPHILS % 59.0 % (36.0-66.0); PLATELET COUNT, AUTOMATED 300 10^3/uL (150-450)
[2025-08-23 11:11] LABS: APPEARANCE, URINE CLEAR (CLEAR); BACTERIA, URINE AUTO NEGATIVE (NEGATIVE); BILIRUBIN, URINE AUTO NEGATIVE (NEGATIVE); BLOOD, URINE BLOOD NEGATIVE (NEGATIVE); GLUCOSE, URINE (UA) AUTO NEGATIVE (NEGATIVE); KETONE, URINE AUTO NEGATIVE (NEGATIVE); LEUKOCYTE ESTERASE, URINE AUTO NEGATIVE (NEGATIVE); MUCUS, URINE SMALL (NEGATIVE); NITRITE, URINE AUTO NEGATIVE (NEGATIVE); PROTEIN, URINE AUTO NEGATIVE (NEGATIVE); RBC, URINE AUTO 1 /HPF (0-3); SPECIFIC GRAVITY URINE AUTO 1.018 (1.002-1.035); SQUAMOUS EPITHELIAL CELL UR AU 0 /HPF (0-6); UROBILINOGEN, URINE AUTO 0.2 mg/dL (0.0-2.0); WBC, URINE AUTO 0 /HPF (0-3)
[2025-08-23 11:35] LABS: ALT/SGPT 15 U/L (7.0-40); AST/SGOT 15 U/L (<34); CALCIUM LEVEL 8.9 MG/DL (8.5-10.1); CARBON DIOXIDE LEVEL 30 MMOL/L (20-31); CHLORIDE LEVEL 102 MMOL/L (98-107); CREATININE FOR GFR 0.70 MG/DL (0.55-1.30); GLOMERULAR FILTRATION RATE > 90.0 (>58); POTASSIUM SERUM 4.2 MMOL/L (3.5-5.1); SODIUM LEVEL 140 MMOL/L (136-145)
== END ==
LOC: M LAB REF 10:15
PROVIDERS: ATTEND Family Medicine
DX: Z01.89 Encounter for other specified special examinations (principal)